=== PATIENT | male | born 1950 | race Caucasian/White ===

== ENCOUNTER → 2016-05-12 | Outpatient (CLI) | payer BC ==
[~2016-05-12] MED LIST: AMLO-110 PO
--- NOTE | 2016-05-12 10:18 | DIAGNOSTIC IMAGING REPORT ---
AP STANDING VIEW OF BOTH KNEES; 3 VIEWS LEFT KNEE CLINICAL HISTORY: Left knee pain. FINDINGS: An AP standing view of both knees with lateral, tunnel, and sunrise views of the left knee are obtained. No prior studies are available for comparison at the time of dictation. The skeletal structures appear osteopenic. No fracture is identified. There is moderate tricompartmental degenerative joint space narrowing, greatest in the medial and patellofemoral compartments. There are patellar enthesophytes as well as mild degenerative beaking of the tibial spine. No osteochondral defect is identified on the tunnel image. A calcified joint body is suggested in the intercondylar notch on the tunnel view. A calcified fabella is noted. There is no large joint effusion. Mild prepatellar soft tissue swelling is observed. Survey images of the right knee on the frontal view show moderate degenerative narrowing in the medial compartment. IMPRESSION: 1. Mild soft tissue swelling with no acute bony abnormality identified in the left knee. 2. Osteopenia and degenerative change as above. Electronically signed by: Justin James M.D. 05/12/2016 10:17 AM Dictated Date/Time: 05/12/2016 10:15 AM
--- NOTE | 2016-05-12 12:24 | DIAGNOSTIC IMAGING REPORT ---
RIGHT WRIST MIN 3 VIEWS ROUTINE CLINICAL HISTORY: CARPAL TUNNEL SYNDROME RIGHT WRIST Right pain. Neuropathy. COMPARISON: None. DISCUSSION: The bones and joint spaces appear intact. There is no evidence of fracture, dislocation or bony disease. There is no evidence for soft tissue swelling. IMPRESSION: Negative study. Electronically signed by: Stevie Tay M.D. 05/12/2016 12:23 PM Dictated Date/Time: 05/12/2016 12:23 PM
== END | disposition home or self-care (01) ==
LOC: C.RDSM 08:10
PROVIDERS: ATTEND Physical Medicine & Rehabilitation Sports Medicine
DX: M17.9 Osteoarthritis of knee, unspecified (principal); G56.01 Carpal tunnel syndrome, right upper limb

== ENCOUNTER → 2016-05-12 | Outpatient (CLI) | payer BC ==
[2016-05-12 10:11] LABS: BASO % 0.5 %; BASO ABS # 0.03 K/uL (0-0.2); COMPLETE YES; EOS % 2.9 %; HEMATOCRIT 44.4 % (42-52); IG% 0.2 %; LYMPH % 20.5 %; LYMPH ABS # 1.19 K/uL (1.2-3.4); MEAN CELL VOLUME 89.5 fL (80-100); MEAN CORPUSCULAR HEMOGLOBIN 30.8 pg (25-34); MEAN CORPUSCULAR HGB CONC 34.5 g/dl (32-36); MEAN PLATELET VOLUME 11.3 fL (7.4-10.4); MONO % 17.1 %; NEUT % 58.8 %; PLATELET COUNT 207 K/uL (130-400); RED BLOOD COUNT 4.96 M/uL (4.7-6.1)
[2016-05-12 11:04] LABS: BLOOD UREA NITROGEN 21 mg/dl (7-18); BUN/CREATININE RATIO 22.9 (10-20); CALCIUM 9.1 mg/dl (8.5-10.1); CARBON DIOXIDE 24 mmol/L (21-32); CHLORIDE 105 mmol/L (98-107); GLUCOSE 93 mg/dl (70-99); POTASSIUM 4.5 mmol/L (3.5-5.1); SODIUM 140 mmol/L (136-145)
== END | disposition home or self-care (01) ==
LOC: C.LAB 09:22
PROVIDERS: ATTEND Physical Medicine & Rehabilitation Sports Medicine
DX: M17.9 Osteoarthritis of knee, unspecified (principal); G56.01 Carpal tunnel syndrome, right upper limb

== ENCOUNTER → 2016-05-27 | Day surgery (SDC) | payer BC ==
[2016-05-16 09:47] VITALS: Ht 172.7 cm; Wt 100.0 kg
[~2016-05-27] VITALS: Ht 172.7 cm; Wt 100.0 kg
[~2016-05-27] MED LIST changes: +BUPIVACAINE 0.5 % 5 MG/1 ML PF 10ML VIAL ONE; +CEFAZOLIN 2000 MG/60 ML D5W IV SCH; +FENTANYL CITRATE INJ 50 MCG/1 ML 2 ML VIAL IV PRN; +FENTANYL CITRATE INJ 50 MCG/1 ML 2 ML VIAL ONE; +LACTATED RINGER'S 1000ML 1,000 ML IV PRN; +LACTATED RINGER'S 1000ML 1,000 ML IV SCH; +LIDOCAINE HCL 2% 2 ML VIAL (20MG/ML) ONE; +LIDOCAINE HCL 2% LOCAL 20 ML VIAL ONE; +METOCLOPRAMIDE HCL INJ 5 MG/ML 2 ML VIAL IV PRN; +MIDAZOLAM HCL 1 MG/ML 2ML VIAL ONE; +ONDANSETRON INJ 2 MG/ML 2 ML VIAL IV PRN; +ONDANSETRON INJ 2 MG/ML 2 ML VIAL ONE; +PROPOFOL IV EMULSION 10 MG/ML 20 ML VIAL IV ONE; +SODIUM CHLORIDE 0.9% 1000ML 1,000 ML IV SCH
--- NOTE | 2016-05-27 09:27 | History & Physical Bridge Note ---
H&P Re-Evaluation Bridge Note: I have examined the patient, reviewed the History & Physical and in the interval since the performance of the History & Physical I have noted the following changes of clinical significance: No changes noted
--- NOTE | 2016-05-27 09:29 | Discharge Instructions ---
Discharge Instructions Visit Reason for Visit: Right Wrist Carpal Tunnel Syndrome Discharge Discharge Diagnosis / Problem: same Discharge Goals Goal(s): Decrease discomfort, Improve function Medications Stopped Medications Name(s): na Restart Stopped Medication(s): use scripts as directed Activity Recommendations Activity Limitations: as noted below Lifting Limitations: until after follow-up appointment Exercise/Sports Limitations: until after follow-up appointment May Resume Sexual Activity: when tolerated Shower/Bathe: keep incision dry Driving or Machine Use: resume 1 day after discharge Anesthesia . Post Anesthesia Instructions: If you have had General Anesthesia or IV Sedation: * Do not drive today. * Resume driving when surgeon permits. * Do not make important decisions or sign legal documents today. * Call surgeon for: 1. Temperature elevations greater than 101 degrees F. 2. Uncontrollable pain. 3. Excessive bleeding. 4. Persistent nausea and vomiting. 5. Medication intolerance (nausea, vomiting or rash). * For nausea and vomiting use only clear liquids such as: tea, soda, bouillon until nausea subsides, then gradually increase diet as tolerated. * If you have any concerns or questions, call your surgeon's office. If physician is unavailable and it is an emergency, call 911 or go to the nearest emergency room. . Instructions / Follow-Up Instructions / Follow-Up The following are instructions to follow after minor hand surgery. ACTIVITY RECOMMENDATIONS: * Minimize activity until your first visit after surgery. * No excessive walking, jogging, sports or laboring. * Return to activity is individualized. Most patients are able to return to everyday activities within 2 weeks. * Return to sports or intensive labor usually occurs at 1-2 months. * DRIVING: Driving may be resumed when you feel you have adequate pain control and use of the hand. * BATHING: You may shower or sponge-bathe immediately after surgery. The dressing will need to be covered with a plastic bag or plastic wrap until the dressing is changed on the fourth or fifth day after surgery. Once the dressing has been changed on the fourth or fifth day after surgery, you may shower and get the incision wet. * Wash with regular soap and water. * Do not bathe (submerge the incision), soak, swim or use a hot tub until the incision is completely healed over with normal skin and the doctor has given the OK to proceed. * There is no need to apply any ointments, powders or salves to your incision. * Do not apply alcohol or hydrogen peroxide directly to the incision. Diluted peroxide (50:50 mixture with sterile saline) may be used to clean dried blood from around the incision area. WORK/SCHOOL: * You may return to sedentary work or school when you are feeling comfortable. This is usually 3-7 days after surgery. * Expect increased discomfort with increased activity. Continue to elevate and ice the hand as much as possible. DIET: * Resume previous diet. MEDICATIONS: * You will have a prescription for pain medication and an anti-inflammatory medication after surgery. Use the pain pills for severe pain and the anti-inflammatory for less severe pain. * Once the pain pills have run out, try to use the anti-inflammatory. If this is not effective then contact the office for assistance. * The pain medication may cause nausea, constipation and sleepiness. You should see how they affect you before driving or similar activity. * The anti-inflammatory may cause stomach upset and bleeding. If this occurs, let your doctor know immediately . * Some patients may need blood clot prevention. This can be done with either a pill or a simple shot. Your doctor will advise you on when to begin these medications and how to take them. * Do not take aspirin or other anti-inflammatory products (i.e. Advil or Aleve ) if taking blood thinner medication. * Take a stool softener like Colace or a stimulant like Senokot to prevent constipation. SPECIAL CARE INSTRUCTIONS: ICE: * Do not apply ice directly to the skin. * Use a thin dressing or stockinet between the skin and ice bag. The dressing in place after surgery will suffice. * Apply ice for 20-30 minutes and repeat every 2-4 hours. This is especially important for the first 3-7 days after surgery. * Once the pain improves, use ice as needed. ELEVATION: * Keep your hand elevated at or above the level of your heart as much as possible. * Expect some increased discomfort and swelling if you allow your hand to hang down for any length of time. DRESSING: * Your dressing will be changed 4-5 days after surgery by the physical therapist or physician's executive assistant to general counsel. Leave your dressing intact until this time. * You may then change your dressing daily with clean dry gauze or Band-aids and a soft wrap or stockinet. * Always wash your hands prior to touching the incision area. * Once the stitches are removed, you may leave the wound open to air or cover with a thin bandage. * There is no need to apply any ointments, powders or salves to your incision. * Expect some bloody drainage for the first few days after surgery. * Leave the tape strips in place (if present) for 5-7 days. * The initial dressing after surgery may become soaked with blood or fluid which is normal. You may reinforce your dressing with clean, dry gauze as needed. BRACE: * Bracing is generally not needed after routine hand surgery. THERAPY: * Physical therapy may be prescribed after your surgery. * For carpal tunnel and trigger digit surgery you may begin moving your fingers and wrist immediately after surgery as tolerated. * Be careful to not overuse. * Once the sutures are removed, further range of motion exercises can be performed. * Hand incisions may be very sensitive for a few months after surgery so avoid excessive pressure on the incision. If necessary, use a padded weightlifters' glove. * You may massage the incision with skin cream to make it less sensitive and reduce scarring. * Hand strength usually returns with normal use. * If needed, squeezing a soft sponge or Play-dough may help. * Your doctor will recommend physical therapy if necessary. PROBLEMS/QUESTIONS: * If you have any problems such as severe pain, numbness, tingling or high fevers or if you have any questions, please contact the office at [phone]. * It is not uncommon to have some numbness and tingling after the surgery especially if you have had a nerve block done. This should gradually improve over the first 1- 2 days. If this persists longer or worsens then contact the office. FOLLOW UP VISIT: * If not already scheduled, please call the office at to schedule follow-up appointments for approximately 10 days, 6 weeks and 3 months after surgery. Diet Recommendations Recommended Home Diet: resume previous diet Procedures Procedures Performed: right ctr Pending Studies Studies pending at discharge: no Medical Emergencies . Who to Call and When: Medical Emergencies: If at any time you feel your situation is an emergency, please call 911 immediately. . Non-Emergent Contact Non-Emergency issues call your: Specialist Call Non-Emergent contact if: temperature is above 101.5 . . "Provider Documentation" section prepared by Abimael Rascon.
--- NOTE | 2016-05-27 10:15 | [facility] Post Operative Brief Note ---
Immediate Operative Summary Operative Date May 27, 2016. Pre-Operative Diagnosis Right Wrist Carpal Tunnel Syndrome Post-Operative Diagnosis Same Procedure(s) Performed Right Wrist Carpal Tunnel Open Release Surgeon Dr. Rascon Sheet Metal Erector Surgeon(s) Tomas Read PA-C Estimated Blood Loss 0 mL Findings CTS RIGHT Fluids (cc crystalloids) SEE ANESTHESIA REPORT Specimens None Drains NONE Anesthesia LOCAL/SEDATION Complication(s) None Disposition
[2016-05-27 10:16] VITALS: TEMP 36.1
--- NOTE | 2016-05-27 10:37 | Anesthesia Progress Nt - [facility] ---
Anesthesia Post Op Note Date & Time May 27, 2016 at 10:37 Vital Signs Pain Intensity: 0 Vital Signs Past 12 Hours Date Time Temp Pulse Resp B/P Pulse Ox O2 Delivery O2 Flow Rate FiO2 05/27/16 10:16 36.1 55 16 152/92 98 Room Air 05/27/16 09:28 36.5 63 18 187/101 97 Room Air Notes Mental Status: alert / awake / arousable, participated in evaluation Pt Amnestic to Procedure: Yes Nausea / Vomiting: adequately controlled Pain: adequately controlled Airway Patency, RR, SpO2: stable & adequate BP & HR: stable & adequate Hydration State: stable & adequate Anesthetic Complications: no major complications apparent
[2016-05-27 10:40] VITALS: BP 160/98; PULSE 55; O2SAT 98
--- NOTE | 2016-05-27 10:45 | OPERATIVE REPORT ---
DATE OF OPERATION: 05/27/2016 PREOPERATIVE DIAGNOSIS: Carpal tunnel syndrome right upper extremity. POSTOPERATIVE DIAGNOSIS: Same. OPERATION PERFORMED: Right carpal tunnel release. SURGEON: Dr. Rascon. CARPET FINISHING SUPERVISOR: Sandip Read PA-C. No resident or fellow available. PERIOPERATIVE SITUATION: Medically cleared male with intractable carpal tunnel findings on both physical exam and EMG nerve conduction study. Wants to proceed with surgical release. OPERATION AND FINDINGS: PROCEDURE: The patient appropriately identified, site verified, consent verified, 2 grams of Ancef confirmed as being given. The right upper extremity was blocked with 5 mL of 0.5% Marcaine plain and 5 mL of 2% plain lidocaine by surgeon. This was done with IV sedation by anesthesia. The arm was then prepped and draped in usual routine fashion. Tourniquet inflated to 250 mmHg after exsanguination of limb with a rubber Esmarch bandage for a total of 16 minutes. A curvilinear incision was then made based on the fourth ray. Blunt dissection down to the palmar fascia. This was then incised under direct vision and the transverse carpal ligament and antebrachial fascia identified. It was then incised approximately 1.5 cm proximal hook of the hamate to the superficial palmar arch. The nerve became hyperemic. The floor of the carpal canal had no masses. The wound was then irrigated and closed with horizontal mattress 3-0 nylon suture, dressed appropriately with a splint. The patient transferred to the holding area in satisfactory condition having tolerated the procedure well. No DVT prophylaxis required. I attest to the content of the Intraoperative Record and any orders documented therein. Any exceptio ns are noted below.
--- NOTE | 2016-05-27 11:02 | OPERATIVE REPORT ---
DATE OF OPERATION: 05/27/2016 PREOPERATIVE DIAGNOSIS: Right wrist carpal tunnel syndrome. POSTOPERATIVE DIAGNOSIS: Right wrist same. PROCEDURE: Right wrist open carpal tunnel release. SURGEON: Dr. Rascon. SAWMILL OR TIMBER YARD WORKER: Sandip Read PA-C. HISTORY OF PRESENT ILLNESS: This 66-year-old white male presented to the office with complaints of numbness and tingling in his right wrist and hand. He previously had a left wrist carpal tunnel release and did very well with that. He elected to proceed with the same on the right. X-ray and EMG were obtained confirming carpal tunnel syndrome. OPERATION: The patient was taken to the operating room where he was given local anesthetic and sedation. He was prepped and draped in the usual sterile fashion. Please see Dr. Rascon's operative report for specifics of the procedure. I was present for the entire case from initial patient positioning through final wound closure. Assistance was provided in tissue retraction, hemostasis, and final wound closure. The patient was taken to phase 2 recovery in satisfactory condition. I attest to the content of the Intraoperative Record and any orders documented therein. Any exceptio ns are noted below.
== END | disposition home or self-care (01) ==
LOC: X.SURG 09:24
PROVIDERS: ATTEND Physical Medicine & Rehabilitation Sports Medicine
DX: G56.01 Carpal tunnel syndrome, right upper limb (principal); I10 Essential (primary) hypertension

== ENCOUNTER 2022-05-17 08:45 | Inpatient (IN) ==
--- NOTE | 2022-05-17 08:53 | Emergency Department Note ---
Impression & Plan Foot drop, right foot, Central stenosis of spinal canal, Back pain, Multilevel foraminal stenosis ED Provider Note NAME: JODY FLOWERS AGE: 72 SEX: M : 1950 ARRIVES VIA: Walk-In INFORMANT: Patient, ED PROVIDER(S): Bebeto Price MD CHIEF COMPLAINT: Back pain, leg weakness MEDICAL DECISION MAKING: Patient presents due to concern for back pain 2 days prior which is since resolved but since then the patient has had some foot drop of the right lower extremity. Given the concern for acute weakness patient did have blood work completed was given a dose of IV steroids. CT of the head was performed as a screener for stroke given the patient's recent back pain believe radiculopathy would be more likely. Given the patient's acute weakness lumbar spine MRI was ordered. Patient's blood work shows a normal white count H&H and platelet count. Kidney function was unremarkable. COVID-negative. The patient's CT of the head is negative. Patient's lumbar spine MRI does show L3-L4 disc extrusion with right lateral recess narrowing which also causes central canal echinosis that is severe along with severe right and moderate left neuroforaminal narrowing. Additional discogenic degeneration with ligamentum flavum thickening and facet arthrosis causing multilevel central canal and neural foraminal stenosis. No current spine coverage on so I did speak with the patient the patient is comfortable with going to [facility]. I did initiate a transfer through the transfer center did speak with Dr. Roberson with neurosurgery who stated the patient wanted surgery would be best to do it sooner than later given the patient's foot drop and weakness. I did asked the patient he would like to proceed with surgery. Patient was accepted but is a current bed hold. Spine does recommend 4 mg dexamethasone every 6 hours. He also stated that the patient were to come down tonight and likely would not have the surgery until Thursday or possibly Thursday. He does not think that I need to find a different [facility] hospital to expedite care as he thinks that this is a reasonable timeframe. I did speak with the patient's son Dr. Bryant is a family physician and Dr. Bryant had already spoken with Dr. Schulz who is local life insurance specialist and does have operating privileges in the hospital. Dr. Schulz states that he can perform the procedure on Thursday. They are comfortable with that plan of care the patient and the patients that are comfortable with this plan of care. I did through the on-call hospitalist Dr. Becerra and the patient was admitted to the medicine service. COVID-negative. Patient's transfer was canceled [facility] at this time. Critical Care: I have personally spent 35 minutes of critical care time in direct management of this patient. This includes bedside care, interpretation of diagnostic studies, and testing, discussion with consultants, patient, and family members, and other require inpatient management activities. This 35 minutes is in excess of all separately billable procedures. Prior /Outside records reviewed: None Differential diagnosis: Musculoskeletal, disc herniation, fracture, metastatic disease, cord compression, discitis, sciatica, cauda equina, infection, aortic disease, renal colic, gastrointestinal, as well as other pathologies. Diagnostics, as interpreted by me: ECG: None Cardiac monitoring: An order was placed for continuous cardiac monitoring. The monitor shows a rate of 67 with sinus rhythm. Patient was placed on pulse oximetry Medical decision rules: None Imaging studies: See below HPI: Patient presents due to concern for right lower extremity weakness and states this is primarily located in the ankle to where he cannot raise his foot up very well. The patient states that he had onset of back pain 2 days prior while he was painting and states that his pain is since resolved but he noticed within the last day that he could not raise his right foot very well. The patient denies any prior history of stroke or mini stroke. The patient has had some back issues in the past and has seen chiropractor which had improved his symptoms. The patient did see the chiropractor yesterday and did not have improvement in symptoms. The patient currently denies any back pain or leg pain. Patient states that sometimes he feels as though there is a numbness. Patient denies any chest pain shortness of breath nausea or vomiting. No upper respiratory symptoms cough fevers or chills. Patient denies any dysarthria slurred speech or facial droop. Patient denies any bowel or bladder incontinence or saddle anesthesia. PAST MEDICAL HISTORY: See Below PAST SURGICAL HISTORY: See Below SOCIAL HISTORY: See Below HOME MEDICATIONS: See Below ALLERGIES: See Below VITALS: See Below PHYSICAL EXAMINATION: GENERAL: NAD, wearing a mask, non-toxic. EYE EXAM: Normal conjunctiva. PERRL, no anisocoria and EOM's grossly intact w/o pain. NECK: Supple, no nuchal rigidity, no adenopathy, non-tender. No signs of meni ngismus. FROM of the neck with good chin to chest and neck extension. No stridor. LUNGS: Clear to auscultation. Normal chest wall mechanics. HEART: NSR, no MRG. ABDOMEN: Abdomen soft, non-tender, normo-active bowel sounds, no masses, no rebound or guarding. BACK: No CVA TTP. SKIN: No rashes and no bruising. UPPER EXTREMITIES: Upper extremities are grossly normal. LOWER EXTREMITIES: Grossly normal, no edema. NEURO EXAM: A&O x3, cranial nerves II-XII grossly intact, normal speech, good [id number], no drift, moves all 4 extremities but weak with dorsiflexion of the right foot, good flexion of the right foot, good flexion extension at the hip and knee of the right lower extremity. Past Med/Surg History Medical History History of prostate cancer Hyperlipidemia Hypertension Obesity Osteoarthritis Skin cancer Surgical History H/O umbilical hernia repair History of carpal tunnel surgery History of colonoscopy History of left knee replacement History of prostate biopsy History of robot-assisted laparoscopic radical prostatectomy S/P trigger finger release Status post surgical removal of malignant neoplasm of skin Family History Mother Pancreatic cancer Bowel cancer Father Natural with unknown cause Brother Prostate cancer Agent orange exposure Daughter Heart problem Other No family history of adverse response to anesthesia Denies family history of Ovarian cancer Myocardial infarction Breast cancer Colorectal cancer Social History Smoking Status: Never smoker Tobacco Type: Cigars Age Started Using Tobacco: 24; Age Quit Using Tobacco: 51; Cigarettes Per Day: 1 cigar per day; Second Hand Exposure: No; Hx Alcohol Use: Yes (Social) Alcohol type: beer Alcohol Intake Frequency: Monthly or Less Alcohol Intake Frequency Comment: "will have a beer here and there" Hx Substance Use: No Preferred Language: Greenlandic Communication Ability: Effective Visual Impairment: No Limitations Hearing Ability: Normal Glass Cleaning Machine Tender Required: No Beliefs That Will Affect Care: None marital status: Current Living Situation: Spouse current occupational status: retired 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 [employer] Feels Safe at Home: Yes Childhood Exposure to Second-Hand Smoke: Yes caffeine: Yes (1 cup/day) during the past year weight has: remained stable Dental Care, Regularly: Yes Physical Activity Frequency: Daily Seatbelt Use: always Sunscreen Use: Yes Assistive Devices: Glasses Allergies Allergies Allergy/AdvReac Type Severity Reaction Status Date / Time No Known Allergies Allergy Verified 01/29/22 08:35 Home Meds Previous Rx's Medication Instructions Recorded amlodipine 5 mg tablet 5 mg PO DAILY #90 tabs 03/26/21 atorvastatin 20 mg tablet 20 mg PO QAM #90 tabs 07/19/21 Results & Data (ED) Vital Signs Vital Signs - 24 hr 05/17/22 08:46 05/17/22 09:24 05/17/22 09:25 Temperature 36.5 C Temperature Source Temporal Artery Scan Pulse Rate 65 55 L Pulse Rate [Apical] 55 L Pulse Rhythm [Apical] Pulse Strength [Apical] Respiratory Rate 20 18 18 Respiratory Effort / Characteristics Non-Labored Spontaneous Non-Labored Spontaneous Respiratory Depth Normal Normal Respiratory Pattern Regular Blood Pressure 167/81 H Blood Pressure [Right Arm] 150/88 H Blood Pressure Mean 109 Blood Pressure Mean [Right Arm] 108 Blood Pressure Position [Right Arm] Sitting Pulse Oximetry 97 98 95 Oxygen Delivery Method Room Air Room Air Room Air Sepsis Recent Fever Within 48 Hours No Sepsis New/Unexplained Change in Mental Status No Sepsis Action Taken by Nursing No Action Required 05/17/22 10:57 05/17/22 13:17 Temperature 36.8 C Temperature Source Oral Pulse Rate Pulse Rate [Apical] 55 L 58 L Pulse Rhythm [Apical] Regular Regular Pulse Strength [Apical] Normal Normal Respiratory Rate 18 19 Respiratory Effort / Characteristics Non-Labored Spontaneous Non-Labored Spontaneous Respiratory Depth Normal Normal Respiratory Pattern Regular Regular Blood Pressure Blood Pressure [Right Arm] 148/88 H 130/81 Blood Pressure Mean Blood Pressure Mean [Right Arm] 108 97 Blood Pressure Position [Right Arm] Lying Lying Pulse Oximetry 94 94 Oxygen Delivery Method Room Air Room Air Sepsis Recent Fever Within 48 Hours Sepsis New/Unexplained Change in Mental Status Sepsis Action Taken by [place]way Medications Current Medication List: was personally reviewed by me Laboratory Data Attestation: I reviewed the patient's lab results. 05/17/22 09:21 05/17/22 09:21 Lab Results 05/17/22 05/17/22 05/17/22 Range/Units 09:21 09:21 13:45 WBC 5.64 (4.8-10.8) K/ul RBC 4.88 (4.70-6.10) M/uL Hgb 14.7 (14.0-18.0) g/dl Hct 44.2 (42.0-52.0) % MCV 90.6 (80.0-100.0) fL MCH 30.1 (25.0-34.0) pg MCHC 33.3 (32.0-36.0) g/dL RDW Std Deviation 41.7 (36.4-46.3) fL RDW Coeff of Vickie 12.8 (11.5-14.5) % Plt Count 216 (130-400) K/uL MPV 11.3 (9.4-12.4) fL Immature Gran % (Auto) 0.2 % Neut % (Auto) 62.2 % Lymph % (Auto) 23.4 % [place] % (Auto) 10.8 % Eos % (Auto) 2.5 % Baso % (Auto) 0.9 % Neut # (Auto) 3.51 (1.40-6.50) K/uL Lymph # (Auto) 1.32 (1.2-3.4) K/uL [place] # (Auto) 0.61 H (0.11-0.59) K/uL Eos # (Auto) 0.14 (0-0.50) K/uL Baso # (Auto) 0.05 (0-0.2) K/uL Immature Gran # (Auto) 0.01 (0.01-0.20) K/uL Sodium 140 (136-145) mmol/L Potassium 4.7 (3.5-5.1) mmol/L Chloride 105 (98-107) mmol/L Carbon Dioxide 29 (21-32) mmol/L Anion Gap 6 (3-11) BUN 18 (6-23) mg/dl Creatinine 1.06 (0.6-1.4) mg/dl Est Cr Clr Drug Dosing 74.4 ml/min Est GFR ( Amer) 81.4 ml/min Est GFR (Non-Af Amer) 70.3 ml/min BUN/Creatinine Ratio 17.0 (10-20) Glucose 81 (70-99(Fasting)) mg/dl Calcium 9.1 (8.5-10.1) mg/dl SARS-CoV-2, RNA, NAAT NEGATIVE (NEGATIVE) Administered Medications Dexamethasone 4 mg/ Syringe 1 mls @ 1 mls/min IV Q6H DEVAUGHN Stop: 06/16/22 13:44 Last Admin: 05/17/22 14:09 Dose: 1 mls/min Documented By: KANA Discontinued Medications Methylprednisolone (Methylprednisolone 125 Mg/2 Ml Vial) 60 mg IV NOW STA Stop: 05/17/22 09:04 Last Admin: 05/17/22 09:15 Dose: 60 mg Documented By: BLAKE Imaging Data Radiologist's Impression: Head CT 05/17/22 09:03 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 Acute strokelike symptoms TECHNIQUE: Multiple axial CT images of the head were obtained without contrast. A dose lowering technique was utilized adhering to the principles of ALARA. CT DOSE: 614.27 mGy.cm COMPARISON: None. FINDINGS: No acute intracranial hemorrhage, midline shift, intracranial mass, hydrocephalus, territorial ischemia or abnormal extra-axial collection. Patchy white matter hypodensities suggestive of chronic microvascular ischemic disease. The calvarium is intact. The paranasal sinuses, mastoid air cells, and middle ear cavities are clear. IMPRESSION: No acute intracranial abnormality. ACT 112: Negative or not required by law. The above report was generated using voice recognition software. It may contain grammatical, syntax or spelling errors. Electronically signed by: Saturnino Sanchez M.D. 05/17/2022 9:50 AM Lumbar Spine MRI 05/17/22 09:03 MR lumbar spine wo con CLINICAL HISTORY: 72 years-old Male with R leg foot drop; back pain 2 days prior. Acute low back pain COMPARISON: CT abdomen and pelvis 03/26/2018. TECHNIQUE: Multiplanar, multi sequence MRI of the lumbar spine was performed without intravenous contrast. FINDINGS: Analysis Tester localizer images demonstrate no gross extraspinal abnormality. Indeterminate T2 hyperintense foci of the left kidney may represent cysts. Motion degraded exam. 1.7 cm T11 vertebral body hemangioma. No acute fracture, subluxation or endplate erosion. Mild Modic type I endplate degeneration at L2- L3. Conus medullaris terminates at T12-L1. Signal within the imaged thoracic spinal cord is within normal limits. T11-T12: Moderate intervertebral disc space narrowing with spondylitic spurring and circumferential annular disc bulge. Central disc protrusion/disc osteophyte complex in conjunction with ligament flavum thickening and moderate facet arthrosis causes mild central canal stenosis, AP dimension of the thecal sac measuring 9 mm along with mild to moderate right and mild left neural foraminal narrowing. T12-L1: Mild to moderate intervertebral disc space narrowing with spondylitic spurring and circumferential annular disc bulge and central/right paracentral disc osteophyte complex. Ligamentum flavum thickening with moderate facet arthrosis. Moderate central canal stenosis, AP dimension of the thecal sac measuring 7 mm. Mild to moderate right with moderate left neural foraminal narrowing. L1-L2: Mild intervertebral disc space narrowing with spondylitic spurring. Small circumferential annular disc bulge with ligamentum flavum thickening and moderate facet arthrosis. Mild to moderate central canal stenosis, AP dimension of the thecal sac measuring 8 mm. Mild right with moderate left foraminal stenosis. L2-L3: Mild to moderate intervertebral disc space narrowing with spondylitic spurring and circumferential annular disc bulge with small posterior disc osteophyte complex. Ligament of 7 thickening with moderate facet arthrosis. Moderate central canal stenosis, AP dimension of the thecal sac measuring 7 mm. Mild to moderate right with severe left neural foraminal stenosis. L3-L4: Mild intervertebral disc space narrowing with spondylitic spurring and posterior annular disc bulge. Ligamentum flavum thickening with severe facet arthrosis. Right paracentral/right lateral recess disc extrusion measures 1.0 x 0.6 cm image 32 series 6 extending 1.3 cm in craniocaudal dimensions the level of the mid L4 vertebral body. Severe right lateral recess narrowing with probable abutment or displacement of the right L4 nerve root. Severe central canal stenosis at this level, AP dimension of the thecal sac measuring 5 mm. Severe right with moderate left neural foraminal narrowing. L4-L5: Moderate intervertebral disc space narrowing and spondylitic spurring with circumferential annular disc bulge. Disc protrusion measuring 11 mm transversely. Ligament 7 thickening with severe facet arthrosis. Moderate triangular central canal stenosis. AP dimension of the thecal sac measures 11 mm. Severe narrowing of the lateral recesses. Moderate bilateral foraminal narrowing. L5-S1: Mild to moderate intervertebral disc space narrowing. Spondylitic spurring with circumferential annular disc bulge/posterior disc osteophyte complex. Ligamentum flavum thickening with severe facet arthrosis. Central canal is patent. There is at least mild narrowing of the lateral recesses. Mild to moderate left with at least moderate right neural foraminal narrowing. IMPRESSION: 1. Motion degraded exam. 2. L3-L4 disc extrusion causes severe right lateral recess narrowing. Additionally at this level there is severe central canal stenosis with severe right and moderate left neural foraminal narrowing. 3. Additional discogenic degeneration with ligamentum flavum thickening and facet arthrosis as above resulting in multilevel central canal and neural foraminal stenosis. 4. No acute fracture. ACT 112: Negative or not required by law. The above report was generated using voice recognition software. It may contain grammatical, syntax or spelling errors. Electronically signed by: Saturnino Sanchez M.D. 05/17/2022 11:37 AM Discharge Plan Visit Data Chief Complaint: Leg Injury/Pain Stated Complaint: RIGHT LEG PAIN ED Provider: Bebeto Price Discharge Problem: Foot drop, right foot, Central stenosis of spinal canal, Back pain, Multilevel foraminal stenosis Patient Disposition: Admitted As Inpatient Forms Stand Alone Forms: [facility] Prescriptions Prescriptions: No Action amlodipine 5 mg tablet 5 mg PO DAILY Qty: 90 3RF atorvastatin 20 mg tablet 20 mg PO QAM Qty: 90 3RF Referrals Referrals: Melquiades Segundo III, MD [Physician] -
[2022-05-17] MEDS ORDERED: methylPREDNISolone 125 MG/2 ML VIAL IV STA (09:03)
[2022-05-17 09:41] LABS: Basophils # (auto) 0.05 K/uL (0-0.2); Basophils % (auto) 0.9 %; Eosinophils # (auto) 0.14 K/uL (0-0.50); Eosinophils % (auto) 2.5 %; Hematocrit (blood only) 44.2 % (42.0-52.0); Hemoglobin 14.7 g/dl (14.0-18.0); Immature Granulocytes # (auto) 0.01 K/uL (0.01-0.20); Immature Granulocytes % (auto) 0.2 %; Lymphocytes # (auto) 1.32 K/uL (1.2-3.4); Lymphocytes % (auto) 23.4 %; Mean Corpuscular Hemoglobin 30.1 pg (25.0-34.0); Mean Corpuscular Hgb Conc 33.3 g/dL (32.0-36.0); Mean Corpuscular Volume 90.6 fL (80.0-100.0); Mean Platelet Volume 11.3 fL (9.4-12.4); Monocytes # (auto) 0.61 K/uL (0.11-0.59); Monocytes % (auto) 10.8 %; Neutrophils # (auto) 3.51 K/uL (1.40-6.50); Neutrophils % (auto) 62.2 %; Platelet Count 216 K/uL (130-400); RDW Coefficient of Variation 12.8 % (11.5-14.5); RDW Standard Deviation 41.7 fL (36.4-46.3); Red Blood Count 4.88 M/uL (4.70-6.10); White Blood Count 5.64 K/ul (4.8-10.8)
--- NOTE | 2022-05-17 09:51 | CT Scan Report ---
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 Acute strokelike symptoms TECHNIQUE: Multiple axial CT images of the head were obtained without contrast. A dose lowering tech nique was utilized adhering to the principles of ALARA. CT DOSE: 614.27 mGy.cm COMPARISON: None. FINDINGS: No acute intracranial hemorrhage, midline shift, intracranial mass, hydrocephalus, territorial ischem ia or abnormal extra-axial collection. Patchy white matter hypodensities suggestive of chronic microv ascular ischemic disease. The calvarium is intact. The paranasal sinuses, mastoid air cells, and middle ear cavities are clear . IMPRESSION: No acute intracranial abnormality. ACT 112: Negative or not required by law. The above report was generated using voice recognition software. It may contain grammatical, syntax o r spelling errors. Electronically signed by: Saturnino Sanchez M.D. 05/17/2022 9:50 AM
[2022-05-17 10:21] LABS: Calcium 9.1 mg/dl (8.5-10.1); Creatinine Clr Calc Pharmacy 74.4 ml/min; Est GFR (African American) 81.4 ml/min; Est GFR (Non-African American) 70.3 ml/min; Potassium 4.7 mmol/L (3.5-5.1)
--- NOTE | 2022-05-17 11:40 | Magnetic Resonance Report ---
MR lumbar spine wo con CLINICAL HISTORY: 72 years-old Male with R leg foot drop; back pain 2 days prior. Acute low back earlene n COMPARISON: CT abdomen and pelvis 03/26/2018. TECHNIQUE: Multiplanar, multi sequence MRI of the lumbar spine was performed without intravenous cont rast. FINDINGS: Chief Radiation Therapist localizer images demonstrate no gross extraspinal abnormality. Indeterminate T2 hyperintense fo ci of the left kidney may represent cysts. Motion degraded exam. 1.7 cm T11 vertebral body hemangioma . No acute fracture, subluxation or endplate erosion. Mild Modic type I endplate degeneration at L2-L 3. Conus medullaris terminates at T12-L1. Signal within the imaged thoracic spinal cord is within nor mal limits. T11-T12: Moderate intervertebral disc space narrowing with spondylitic spurring and circumferential a nnular disc bulge. Central disc protrusion/disc osteophyte complex in conjunction with ligament flavu m thickening and moderate facet arthrosis causes mild central canal stenosis, AP dimension of the the keith sac measuring 9 mm along with mild to moderate right and mild left neural foraminal narrowing. T12-L1: Mild to moderate intervertebral disc space narrowing with spondylitic spurring and circumfer ential annular disc bulge and central/right paracentral disc osteophyte complex. Ligamentum flavum th ickening with moderate facet arthrosis. Moderate central canal stenosis, AP dimension of the thecal s ac measuring 7 mm. Mild to moderate right with moderate left neural foraminal narrowing. L1-L2: Mild intervertebral disc space narrowing with spondylitic spurring. Small circumferential dedrick ular disc bulge with ligamentum flavum thickening and moderate facet arthrosis. Mild to moderate cent ral canal stenosis, AP dimension of the thecal sac measuring 8 mm. Mild right with moderate left fora monika stenosis. L2-L3: Mild to moderate intervertebral disc space narrowing with spondylitic spurring and circumfere ntial annular disc bulge with small posterior disc osteophyte complex. Ligament of 7 thickening with moderate facet arthrosis. Moderate central canal stenosis, AP dimension of the thecal sac measuring 7 mm. Mild to moderate right with severe left neural foraminal stenosis. L3-L4: Mild intervertebral disc space narrowing with spondylitic spurring and posterior annular disc bulge. Ligamentum flavum thickening with severe facet arthrosis. Right paracentral/right lateral rec ess disc extrusion measures 1.0 x 0.6 cm image 32 series 6 extending 1.3 cm in craniocaudal dimension s the level of the mid L4 vertebral body. Severe right lateral recess narrowing with probable abutmen t or displacement of the right L4 nerve root. Severe central canal stenosis at this level, AP dimensi on of the thecal sac measuring 5 mm. Severe right with moderate left neural foraminal narrowing. L4-L5: Moderate intervertebral disc space narrowing and spondylitic spurring with circumferential an nular disc bulge. Disc protrusion measuring 11 mm transversely. Ligament 7 thickening with severe fac et arthrosis. Moderate triangular central canal stenosis. AP dimension of the thecal sac measures 11 mm. Severe narrowing of the lateral recesses. Moderate bilateral foraminal narrowing. L5-S1: Mild to moderate intervertebral disc space narrowing. Spondylitic spurring with circumferenti al annular disc bulge/posterior disc osteophyte complex. Ligamentum flavum thickening with severe fac et arthrosis. Central canal is patent. There is at least mild narrowing of the lateral recesses. Mild to moderate left with at least moderate right neural foraminal narrowing. IMPRESSION: 1. Motion degraded exam. 2. L3-L4 disc extrusion causes severe right lateral recess narrowing. Additionally at this level ther e is severe central canal stenosis with severe right and moderate left neural foraminal narrowing. 3. Additional discogenic degeneration with ligamentum flavum thickening and facet arthrosis as above resulting in multilevel central canal and neural foraminal stenosis. 4. No acute fracture. ACT 112: Negative or not required by law. The above report was generated using voice recognition software. It may contain grammatical, syntax o r spelling errors. Electronically signed by: Saturnino Sanchez M.D. 05/17/2022 11:37 AM
[2022-05-17] MEDS: dexAMETHasone 4 MG in SYRINGE 0 ML IV SCH ×2 (14:09→20:20)
--- NOTE | 2022-05-17 15:04 | History & Physical Report ---
Date of Service May 17, 2022 Assessment & Plan (1) Foot drop, right foot: Plan: Lumbar Radiculopathy, R foot dorsiflexion Discussed with Ortho/spine. Recommended for decompression in the next few days, tentatively will anticipate for At this time can treat with steroids dexamethasone 4 mg every 6 hours Did discuss transfer to [facility]/other facilities versus remaining on her observation pending intervention with Dr. Schulz. Patient prefers to remain at [facility] - MRI: Motion degraded exam. L3-L4 disc extrusion causes severe right lateral recess narrowing. Additionally at this level there is severe central canal stenosis with severe right and moderate left neural foraminal narrowing. Additional discogenic degeneration with ligamentum flavum thickening and facet arthrosis as above resulting in multilevel central canal and neural foraminal stenosis. No acute fracture. On exam following steroids patient has had improved ankle dorsiflexion and toe with healing, right ankle dorsiflexion is still substantially/asymmetrically weaker compared to left. Sensation soft touch is intact in all aspects of the foot, lower extremity, distal right lower extremity, proximal right lower extre mity. Hypertension Well-controlled, continue amlodipine Hyperlipidemia Can continue atorvastatin Hx Prostate Cancer - S/p prostatectomy Some small-volume intermittent incontinence, otherwise patient has no residual problems from this.. No residual cancer pain prophylaxis outpatient, no acute Hx L Knee Replacement - No acute change DVT prophylaxis: SCDs, Hold pharmacoppx day prior to anticipated intervention Diet: Regular, n.p.o. at midnight prior to surgical intervention CODE STATUS: Full code Disposition: Medical/surgical (2) Central stenosis of spinal canal: (3) Hyperlipidemia: (4) Hypertension: History of Present Illness Primary Care Provider: Ezequiel Jones DO Santiago is a 72-year-old male with a past medical history of hyperlipidemia, hypertension, left knee OA, carpal tunnel who was working 2 days ago when he felt a pain in his back and he subsequently had right foot loss of dorsiflexion. No pain. Was working with his chiropractor no change. Does have pain, and lastly has noticed that he was unable to lift up his right. No prior problems with neuropathy, strokes. Qualitatively decreased sensation on right foot compared to left. Was reviewed with orthopedic surgery and Dr. Schulz per hospitalist assessment, patient is recommended for lumbar decompression. Per Pt 2 days ago was working and suddenly had a pain in his back which ran down the back of his R leg. Pt denies a 'pop' at the time but pain onset was very sudden. No history of back pain. Does have sciatica which he sees a chiropracter for. THis pain felt different, saw chiropracter but did not help yesterday. Currently with 'pressure like' change in feeling below the knee. No swelling. No numbness or tingling in the foot per pt. 'I can feel everything' Has weakness in the R ankle, difficulty dorsiflexion and wiggling toes. Since having steroids is able to wiggle toes much better. No recent illnesses, no fever/chills/sweats, no abdominal pain. No dysuria, voids without difficulty since prostate removal, occasionally if he "overstretch his "himself will have some brief small-volume incontinence but otherwise does well.Pt was discussed with neurosurgery Dr. Roberson; recommended urgent but not emergency surgical decompression given foot drop and weakness. Pt was accepted at [facility] as a bed hold, pt would prefer to remain to have procedure at [facility] ~Thursday which was felt to be reasonable on consulted. No heart problems No lung problems No kidney problems No hx diabetes No history of strokes or ministrokes Had a knee replacement on postop DVT ppx for 1 mo otherwise no history of bloodthinner use. Does not take aspirin Able to go up stairs, work regularly with no angina/chest pain/shortness of breath Hx of prostatectomy removed with clear margins, no residual cancer. No LUTS, does not need flomax. Some mild dribbling intermittently at times fo rwhich he wears a small pad. No dysuria. Medical History: Reviewed Medications: Reviewed Surgical History: Reviewed Allergies: Reviewed Social History: Social etoh, no tobacco use Code Status: Full Code. Primary Contact is Jennifer Bhatia [phone], Allergies Allergy/AdvReac Type Severity Reaction Status Date / Time No Known Allergies Allergy Verified 01/29/22 08:35 Home Medications Medication Instructions Recorded Confirmed Type amlodipine 5 mg tablet 5 mg PO DAILY #90 tabs 03/26/21 01/29/22 Rx atorvastatin 20 mg tablet 20 mg PO QAM #90 tabs 07/19/21 01/29/22 Rx Past Med/Surg History Medical History (Updated 05/17/22 @ 15:34 by Wesley Becerra MD) History of prostate cancer 3 years ago s/p prostatectomy Hyperlipidemia Hypertension Obesity Osteoarthritis Skin cancer Surgical History H/O umbilical hernia repair History of carpal tunnel surgery R/L History of colonoscopy History of left knee replacement done 02/13/21 [place] History of prostate biopsy History of robot-assisted laparoscopic radical prostatectomy S/P trigger finger release Status post surgical removal of malignant neoplasm of skin removal of lower back lesion Family History Mother Pancreatic cancer Bowel cancer Father Natural with unknown cause Brother Prostate cancer Agent orange exposure Daughter Heart problem Other No family history of adverse response to anesthesia Denies family history of Ovarian cancer Myocardial infarction Breast cancer Colorectal cancer Social History Smoking Status: Former smoker Tobacco Type: Cigars Age Started Using Tobacco: 24; Age Quit Using Tobacco: 51; Cigarettes Per Day: 1; Smoking End Date: 2000; Second Hand Exposure: No; Do You Dip or Chew Tobacco: No; Tobacco Cessation Education Requested by Patient: No Hx Alcohol Use: Yes Alcohol type: beer Alcohol Intake Frequency: Monthly or Less Alcohol Intake Frequency Comment: "will have a beer here and there" Hx Substance Use: No Preferred Language: Citizen Of [place] Communication Ability: Effective Communication Ability Comment: wears glasses Visual Impairment: No Limitations Hearing Ability: Normal Grain Combiner Required: No Beliefs That Will Affect Care: None marital status: Current Living Situation: Spouse current occupational status: retired 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 NAD. Cooperative. HEENT: Atraumatic, normocephalic. Vision/hearing intact. Pupils equal and reactive to light Pulm: CTAB A&P. -wheezes, -rales, -rhonchi. Symmetrical chest rise. No increased work of breathing. No respiratory distress. Cardiac: RRR, -mrg. Radial pulses intact and symmetrical. Abdominal: Nontender, nondistended, soft. BS present. Back: No midline spinal or paraspinal tenderness RUE: 5/5 Elbow flexion/extension, wrist flexion/extension 5/5 spring coiler strength, finger flexion/extension, interosseus LUE: 5/5 Elbow flexion/extension, wrist flexion/extension 5/5 spring coiler strength, finger flexion/extension, interosseus RLE: 5/5 to knee flexion, ankle plantarflexion. R ankle dorsiflexion Significantly diminished comparied to R ~3-4-/5. Wiggles toes easily. LLE: 5/5 to knee flexion ankle dorsi/plantarflexion. REFLEXES: 2/4 patellar, bicepts, and achilles DTR without asymmetry. Bilateral flexor planter response, no Lee's, no clonus SENSORY: Normal to touch in upper and lower extremities without deficit or asymmetry Results & Data Results & Data ([facility]) Vital Signs (Past 12 Hours) Vital Signs Temp Pulse Pulse Resp BP BP Pulse Ox 05/17/22 13:17 58 L 19 130/81 94 05/17/22 10:57 36.8 C 55 L 18 148/88 H 94 05/17/22 09:25 55 L 18 150/88 H 95 05/17/22 09:24 55 L 18 98 05/17/22 08:46 36.5 C 65 20 167/81 H 97 O2 Del Method 05/17/22 13:17 Room Air 05/17/22 10:57 Room Air 05/17/22 09:25 Room Air 05/17/22 09:24 Room Air 05/17/22 08:46 Room Air PG Care Time/CCT Total # of Minutes Spent Total Time Spent with Patient: Total time spent is greater than 50% in coordination of care (as documented) at patient's floor/unit and/or counseling patient: Coding Level of Care Code 29447 INT INP/OBS CARE 2/55MIN Diagnoses Foot drop, right foot M21.371 Central stenosis of spinal canal M48.00 Hyperlipidemia E78.5 Hypertension I10
[2022-05-17] MEDS ORDERED: ACETAMINOPHEN 325 MG TAB PO PRN (16:15)
[2022-05-18] MEDS: dexAMETHasone 4 MG in SYRINGE 0 ML IV SCH ×4 (01:16→19:38)
[2022-05-18 06:53] LABS: Basophils # (auto) 0.01 K/uL (0-0.2); Basophils % (auto) 0.1 %; Hematocrit (blood only) 44.2 % (42.0-52.0); Hemoglobin 14.9 g/dl (14.0-18.0); Immature Granulocytes # (auto) 0.06 K/uL (0.01-0.20); Immature Granulocytes % (auto) 0.5 %; Lymphocytes # (auto) 0.91 K/uL (1.2-3.4); Lymphocytes % (auto) 7.5 %; Mean Corpuscular Hemoglobin 30.1 pg (25.0-34.0); Mean Corpuscular Hgb Conc 33.7 g/dL (32.0-36.0); Mean Corpuscular Volume 89.3 fL (80.0-100.0); Mean Platelet Volume 11.7 fL (9.4-12.4); Monocytes # (auto) 0.37 K/uL (0.11-0.59); Monocytes % (auto) 3.1 %; Neutrophils # (auto) 10.73 K/uL (1.40-6.50); Neutrophils % (auto) 88.8 %; Platelet Count 223 K/uL (130-400); RDW Coefficient of Variation 12.4 % (11.5-14.5); RDW Standard Deviation 40.5 fL (36.4-46.3); Red Blood Count 4.95 M/uL (4.70-6.10); White Blood Count 12.08 K/ul (4.8-10.8)
[2022-05-18 07:26] LABS: BUN Creatinine Ratio 26.2 (10-20); Calcium 9.5 mg/dl (8.5-10.1); Creatinine Clr Calc Pharmacy 92.6 ml/min; Est GFR (African American) 102.1 ml/min; Est GFR (Non-African American) 88.1 ml/min; Potassium 4.6 mmol/L (3.5-5.1)
--- NOTE | 2022-05-18 07:32 | Hospitalist Progress Note ---
Date of Service May 18, 2022 Assessment & Plan (1) Foot drop, right foot: Plan: Acute lumbar Radiculopathy, R foot dorsiflexion moderate to severe risk of permanent neurological compromise On admission patient was discussed with Ortho/spine. Recommended for dec ompression dexamethasone 4 mg every 6 hours parenteral opiates for pain control Did discuss transfer Patient prefers to remain at [facility] - MRI: Motion degraded exam. L3-L4 disc extrusion causes severe right lateral recess narrowing. Additionally at this level there is severe central canal stenosis with severe right and moderate left neural foraminal narrowing. Additional discogenic degeneration with ligamentum flavum thickening and facet arthrosis as above resulting in multilevel central canal and neural narendra inal stenosis. No acute fracture. Hypertension chronic and stable continue amlodipine Hx Prostate Cancer chronic - S/p prostatectomy, mild risk will need to watch for urinary retention with neurologic compromise and parenteral opiates Hx L Knee Replacement - No acute change DVT prophylaxis: SCDs, Hold pharmacoppx day prior to anticipated intervention CODE STATUS: Full code (2) Central stenosis of spinal canal: (3) Hyperlipidemia: (4) Hypertension: Admission and Anticipated Discharge Date Admission Date: May 17, 2022 Subjective pt with persistent right leg radicular symptoms more so paresthesias over pain Physical Exam Physical Exam: Patient awake alert. Card exam is regular lungs are clear right leg shows a radicular pain to the lateral thigh lateral lower leg across the top of his foot diminished dorsiflexion of his toes diminished sensory awareness of his foot and ankle Results & Data Results & Data ([facility]) Vital Signs (Past 12 Hours) Vital Signs Temp Pulse Resp BP Pulse Ox O2 Del Method 05/18/22 07:20 97.3 F L 60 18 116/80 95 Room Air 05/17/22 22:52 97.9 F 66 16 158/66 H 92 Room Air Laboratory Results Reviewed CBC Reviewed chemistry PG Care Time/CCT Total # of Minutes Spent Total Time Spent with Patient: Total time spent is greater than 50% in coordination of care (as documented) at patient's floor/unit and/or counseling patient: Coding Level of Care Code 43706 SUB INP/OBS CARE 2/35MIN Diagnoses Foot drop, right foot M21.371 Central stenosis of spinal canal M48.00 Hyperlipidemia E78.5 Hypertension I10
[2022-05-18] MEDS: amLODIPine BESYLATE 5 MG TAB PO SCH (08:44)
--- NOTE | 2022-05-18 18:12 | Orthopedic Consultation ---
Date of Consultation May 18, 2022 Assessment & Plan (1) Foot drop, right foot: Assessment hernia nucleus pulposus L3-L4 on the right with encroachment of the traversing L4 nerve root. Plan Discussion today with the patient his and daughter reviewing his MRI findings and clinical presentation. He does have evidence of multilevel lumbar spinal stenosis severe at L3-L4 followed by L4-5. There is severe neuroforaminal disease at L2-L3 on the left. Spondylolisthesis L5-S1. At this point he has no radicular pain numbness or tingling. He does have strength deficit. With this presentation would not recommend urgent surgery. There is a very strong likelihood that he would regain significant strength without surgical invention. Any surgery would most likely require a wide decompression at L3-L4 with possible fusion this would set up for adjacent level disease and further issues. Would like to refrain from any surgical invention for as long as possible. Patient stands and agrees. History of Present Illness Reason for Consultation: Right foot drop Attending Physician: Tae Sal MD History of Present Illness Is a very pleasant 72-year-old male who presents yesterday with marked strength deficit to the right foot. He states that the day before he had an episode of back pain with pain rating down the leg including some numbness and tingling. This seemed to resolve relatively quickly and he is left with residual foot drop in the right foot. Left lower extremities asymptomatic. He states prior to this time he is very active. 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 He also was able to aparicio throughout the fall without limitation as he worked his way through the [place]. He states can stand and ambulate great distances without any neurogenic claudication. He has now been on IV steroids for almost 24 hours and noting some improvement of the right foot strength. Allergies Allergy/AdvReac Type Severity Reaction Status Date / Time No Known Allergies Allergy Verified 01/29/22 08:35 Home Medications Medication Instructions Recorded Confirmed Type amlodipine 5 mg tablet 5 mg PO DAILY #90 tabs 03/26/21 05/17/22 Rx atorvastatin 20 mg tablet 20 mg PO QAM #90 tabs 07/19/21 05/17/22 Rx Patient History Medical History (Updated 05/17/22 @ 15:34 by Wesley Becerra MD) History of prostate cancer 3 years ago s/p prostatectomy Hyperlipidemia Hypertension Obesity Osteoarthritis Skin cancer Surgical History H/O umbilical hernia repair History of carpal tunnel surgery R/L History of colonoscopy History of left knee replacement done 02/13/21 [place] History of prostate biopsy History of robot-assisted laparoscopic radical prostatectomy S/P trigger finger release Status post surgical removal of malignant neoplasm of skin removal of lower back lesion Family History Mother Pancreatic cancer Bowel cancer Father Natural with unknown cause Brother Prostate cancer Agent orange exposure Daughter Heart problem Other No family history of adverse response to anesthesia Denies family history of Ovarian cancer Myocardial infarction Breast cancer Colorectal cancer Social History Smoking Status: Former smoker Tobacco Type: Cigars Age Started Using Tobacco: 24; Age Quit Using Tobacco: 51; Cigarettes Per Day: 1; Smoking End Date: 2000; Second Hand Exposure: No; Do You Dip or Chew Tobacco: No; Tobacco Cessation Education Requested by Patient: No Hx Alcohol Use: Yes Alcohol type: beer Alcohol Intake Frequency: Monthly or Less Alcohol Intake Frequency Comment: "will have a beer here and there" Hx Substance Use: No Preferred Language: [place] Communication Ability: Effective Communication Ability Comment: wears glasses Visual Impairment: No Limitations Hearing Ability: Normal Lathe Machinist Required: No Beliefs That Will Affect Care: None marital status: Current Living Situation: Spouse current occupational status: retired 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 He is comfortable. He is not in any evidence of distress. Exhibits plus out of 5 left thigh flexion dorsiflexion such QUADRICEPS. ON THE RIGHT THERE IS DEFICITS TO THE DORSI AND FLEXION OF THE FOOT 4-/5. PLANTAR FLEXION IS INTACT. I DID HAVE HIM STAND AND AMBULATE THE HALLS PREVIOUSLY TO DO SO WITH EVIDENCE OF A FOOT DROP ON THE RIGHT BUT WITHOUT ANY EVIDENCE OF ANTALGIA. Results & Data ([facility]) Vital Signs (Past 12 Hours) Vital Signs Temp Pulse Resp BP Pulse Ox O2 Del Method 05/18/22 15:46 36.3 C L 62 16 136/74 96 Room Air 05/18/22 07:20 36.3 C L 60 18 116/80 95 Room Air
[2022-05-19] MEDS: dexAMETHasone 4 MG in SYRINGE 0 ML IV SCH ×2 (01:26→07:59)
[2022-05-19] MEDS: amLODIPine BESYLATE 5 MG TAB PO SCH (08:36)
--- NOTE | 2022-05-19 10:07 | Orthopedic Progress Note ---
Date of Service May 19, 2022 Assessment & Plan (1) Foot drop, right foot: Plan: At this time he is improving. I suggest that he is safe to return home on a short course of oral steroids. I like him to return to our office in the next couple weeks for evaluation and we can initiate a course of physical therapy. Admission and Anticipated Discharge Date Admission Date: May 17, 2022 Subjective Patient is back pain is controlled he has no leg pain. He has been up and ambulating this morning. He feels that he has had some steady improvement in function to the right foot. Physical Exam Physical Exam: On exam his dorsiflexion is still limited to the right but modestly improved from yesterday. He is 5/5 strength testing left lower extremity. Results & Data ([facility]) Vital Signs (Past 12 Hours) Vital Signs Temp Pulse Resp BP Pulse Ox O2 Del Method 05/19/22 08:06 36.5 C 56 L 18 138/80 94 Room Air
--- NOTE | 2022-05-19 12:09 | Discharge Summary ---
Date of Service May 19, 2022 Admission HPI Per Admitting Provider Santiago is a 72-year-old male with a past medical history of hyperlipidemia, hypertension, left knee OA, carpal tunnel who was working 2 days ago when he felt a pain in his back and he subsequently had right foot loss of dorsiflexion. No pain. Was working with his chiropractor no change. Does have pain, and lastly has noticed that he was unable to lift up his right. No prior problems with neuropathy, strokes. Qualitatively decreased sensation on right foot compared to left. Was reviewed with orthopedic surgery and Dr. Schulz per hospitalist assessment, patient is recommended for lumbar decompression. Per Pt 2 days ago was working and suddenly had a pain in his back which ran down the back of his R leg. Pt denies a 'pop' at the time but pain onset was very sudden. No history of back pain. Does have sciatica which he sees a chiropracter for. THis pain felt different, saw chiropracter but did not help yesterday. Currently with 'pressure like' change in feeling below the knee. No swelling. No numbness or tingling in the foot per pt. 'I can feel everything' Has weakness in the R ankle, difficulty dorsiflexion and wiggling toes. Since having steroids is able to wiggle toes much better. No recent illnesses, no fever/chills/sweats, no abdominal pain. No dysuria, voids without difficulty since prostate removal, occasionally if he "overstretch his "himself will have some brief small-volume incontinence but otherwise does well.Pt was discussed with neurosurgery Dr. Roberson; recommended urgent but not emergency surgical decompression given foot drop and weakness. Pt was accepted at [facility] as a bed hold, pt would prefer to remain to have procedure at [facility] ~Thursday which was felt to be reasonable on consulted. No heart problems No lung problems No kidney problems No hx diabetes No history of strokes or ministrokes Had a knee replacement on postop DVT ppx for 1 mo otherwise no history of bloodthinner use. Does not take aspirin Able to go up stairs, work regularly with no angina/chest pain/shortness of breath Hx of prostatectomy removed with clear margins, no residual cancer. No LUTS, does not need flomax. Some mild dribbling intermittently at times fo rwhich he wears a small pad. No dysuria. Medical History: Reviewed Medications: Reviewed Surgical History: Reviewed Allergies: Reviewed Social History: Social etoh, no tobacco use Code Status: Full Code. Primary Contact is Jennifer Bahtia [phone], Principal Diagnosis Acute lumbar radiculopathy improved Discharge Exam Patient had resolution of his previous weakness he still has a very small area of decreased sensation but his strength is intact pain is resolved Discharge Data Allergies Allergy/AdvReac Type Severity Reaction Status Date / Time No Known Allergies Allergy Verified 01/29/22 08:35 Consultations 05/17/22 15:02 ED Decision to Admit Stat 05/17/22 16:15 Consult Orthopedic Surgery Routine Dr. Schulz atthis time he is improving. I suggest that he is safe to return home on a short course of oral steroids. I like him to return to our office in the next couple weeks for evaluation and we can initiate a course of physical therapy. 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 Acute strokelike symptoms TECHNIQUE: Multiple axial CT images of the head were obtained without contrast. A dose lowering technique was utilized adhering to the principles of ALARA. CT DOSE: 614.27 mGy.cm COMPARISON: None. FINDINGS: No acute intracranial hemorrhage, midline shift, intracranial mass, hydrocephalus, territorial ischemia or abnormal extra-axial collection. Patchy white matter hypodensities suggestive of chronic microvascular ischemic disease. The calvarium is intact. The paranasal sinuses, mastoid air cells, and middle ear cavities are clear. IMPRESSION: No acute intracranial abnormality. ACT 112: Negative or not required by law. The above report was generated using voice recognition software. It may contain grammatical, syntax or spelling errors. Electronically signed by: Saturnino Sanchez M.D. 05/17/2022 9:50 AM Lumbar Spine MRI 05/17/22 09:03 MR lumbar spine wo con CLINICAL HISTORY: 72 years-old Male with R leg foot drop; back pain 2 days prior. Acute low back pain COMPARISON: CT abdomen and pelvis 03/26/2018. TECHNIQUE: Multiplanar, multi sequence MRI of the lumbar spine was performed without intravenous contrast. FINDINGS: Public Policy Analyst localizer images demonstrate no gross extraspinal abnormality. Indeterminate T2 hyperintense foci of the left kidney may represent cysts. Motion degraded exam. 1.7 cm T11 vertebral body hemangioma. No acute fracture, subluxation or endplate erosion. Mild Modic type I endplate degeneration at L2- L3. Conus medullaris terminates at T12-L1. Signal within the imaged thoracic spi nal cord is within normal limits. T11-T12: Moderate intervertebral disc space narrowing with spondylitic spurring and circumferential annular disc bulge. Central disc protrusion/disc osteophyte complex in conjunction with ligament flavum thickening and moderate facet arthrosis causes mild central canal stenosis, AP dimension of the thecal sac measuring 9 mm along with mild to moderate right and mild left neural foraminal narrowing. T12-L1: Mild to moderate intervertebral disc space narrowing with spondylitic spurring and circumferential annular disc bulge and central/right paracentral disc osteophyte complex. Ligamentum flavum thickening with moderate facet arthrosis. Moderate central canal stenosis, AP dimension of the thecal sac measuring 7 mm. Mild to moderate right with moderate left neural foraminal narrowing. L1-L2: Mild intervertebral disc space narrowing with spondylitic spurring. Small circumferential annular disc bulge with ligamentum flavum thickening and moderate facet arthrosis. Mild to moderate central canal stenosis, AP dimension of the thecal sac measuring 8 mm. Mild right with moderate left foraminal stenosis. L2-L3: Mild to moderate intervertebral disc space narrowing with spondylitic spurring and circumferential annular disc bulge with small posterior disc osteophyte complex. Ligament of 7 thickening with moderate facet arthrosis. Moderate central canal stenosis, AP dimension of the thecal sac measuring 7 mm. Mild to moderate right with severe left neural foraminal stenosis. L3-L4: Mild intervertebral disc space narrowing with spondylitic spurring and posterior annular disc bulge. Ligamentum flavum thickening with severe facet arthrosis. Right paracentral/right lateral recess disc extrusion measures 1.0 x 0.6 cm image 32 series 6 extending 1.3 cm in craniocaudal dimensions the level of the mid L4 vertebral body. Severe right lateral recess narrowing with probable abutment or displacement of the right L4 nerve root. Severe central can al stenosis at this level, AP dimension of the thecal sac measuring 5 mm. Severe right with moderate left neural foraminal narrowing. L4-L5: Moderate intervertebral disc space narrowing and spondylitic spurring with circumferential annular disc bulge. Disc protrusion measuring 11 mm transversely. Ligament 7 thickening with severe facet arthrosis. Moderate triangular central canal stenosis. AP dimension of the thecal sac measures 11 mm. Severe narrowing of the lateral recesses. Moderate bilateral foraminal narrowing. L5-S1: Mild to moderate intervertebral disc space narrowing. Spondylitic spurring with circumferential annular disc bulge/posterior disc osteophyte complex. Ligamentum flavum thickening with severe facet arthrosis. Central canal is patent. There is at least mild narrowing of the lateral recesses. Mild to moderate left with at least moderate right neural foraminal narrowing. IMPRESSION: 1. Motion degraded exam. 2. L3-L4 disc extrusion causes severe right lateral recess narrowing. Additionally at this level there is severe central canal stenosis with severe right and moderate left neural foraminal narrowing. 3. Additional discogenic degeneration with ligamentum flavum thickening and facet arthrosis as above resulting in multilevel central canal and neural foraminal stenosis. 4. No acute fracture. ACT 112: Negative or not required by law. The above report was generated using voice recognition software. It may contain grammatical, syntax or spelling errors. Electronically signed by: Saturnino Sanchez M.D. 05/17/2022 11:37 AM Ordered Studies 05/17/22 09:03 CT head/brain wo con Stat MR lumbar spine wo con Stat Hospital Course (1) Foot drop, right foot: Acute lumbar Radiculopathy, R foot dorsiflexion moderate to severe risk of permanent neurological compromise Patient a great improvement in his radicular symptoms on steroids. To this and he and Dr. Schulz had discussion wishing to postpone any surgical intervention but try continue steroids with outpatient follow-up. Would not pursue any physical therapy until the patient has a follow-up appoint with Dr. Schulz but till that time the patient is able to walk but not do any significant lifting bending or twisting. - MRI: Motion degraded exam. L3-L4 disc extrusion causes severe right lateral recess narrowing. Additionally at this level there is severe central canal stenosis with severe right and moderate left neural foraminal narrowing. Additional discogenic degeneration with ligamentum flavum thickening and facet arthrosis as above resulting in multilevel central canal and neural foraminal stenosis. No acute fracture. Hypertension chronic and stable continue amlodipine Hx Prostate Cancer chronic - S/p prostatectomy, Hx L Knee Replacement - No acute change CODE STATUS: Full code (2) Central stenosis of spinal canal: (3) Hyperlipidemia: (4) Hypertension: Total Time Total Time Spent Total Time Spent (In Minutes): It required greater than 30 minutes to prepare this patient for discharge Discharge Plan Discharge Items Patient Disposition: Home - Self-Care Reason For Visit: RT FOOT WEAKNESS,LUMBAR HERNIATION Discharge Diagnosis: foot weakness and numbness from herniated disc Activity: Per Instructions section Non-emergency contact: Primary Care Provider Call non-emergency contact if: your symptoms worsen Follow-up/Referrals: Ezequile Jones, DO [Primary Care Provider] - Diet: Regular Addtl Attending Provider Instructions: please rest and avoid bending and twisting take your medications for the next few days follow up with Dr Schulz, do not start physical therapy until after you have a follow up with Dr Schulz you can do typical daily activities and especially walking until then Pending Studies at Discharge: No Stand-Alone Forms: [employer], Smoking Cessation Medications and DC Order Prescriptions: New prednisone 10 mg tablet 10 mg PO DIRECTED Qty: 20 0RF Rx Instructions: 4 a day x 2 d>3 a day x 2 d>2 a day x 2 d>1 a day Continued amlodipine 5 mg tablet 5 mg PO DAILY Qty: 90 3RF atorvastatin 20 mg tablet 20 mg PO QAM Qty: 90 3RF Discharge Orders: Discharge Order (Routine); Ordered 05/19/22 Ordered By: Tae Sal Admission Data Admit Date/Time: 05/17/22 15:14 Attending Provider: Tae Sal Admit Provider: Wesley Becerra Primary Care Provider: Ezequiel Jones Other Providers: Wesley Becerra ; Kelton Schulz Coding Level of Care Code HOSP INP/OBS DISCH >30 MIN Diagnoses Foot drop, right foot M21.371 Central stenosis of spinal canal M48.00 Hyperlipidemia E78.5 Hypertension I10
== END 2022-05-19 12:58 | disposition home or self-care (01) | DRG 552 ==
LOC: ED 08:45 → 3N 15:14 → SUATTDRO 15:14 → 3N 15:51